=== PATIENT | female | born 1960 | race Caucasian/White ===

== ENCOUNTER → 2017-12-28 | Outpatient (CLI) | payer BC ==
[~2017-12-28] VITALS: Ht 166.4 cm; Wt 136.0 kg
[~2017-12-28] MED LIST: AMITRIPTYLINE H25 MG PO; ASCORBIC ACID500 M3 PO; ASPIR-LOW81 MG PO; BIOTIN 5000MCG PO; CALCIUM 500 MG1 EACH PO; CILOSTAZOL100 MG PO; COZAAR100 MG PO; CYANOCOBALAM1000 MCG PO; Cozaar PO; DAILY VITE1 EAC1 PO; DOCUSATE SODIU100 MG PO; ECONAZOLE NITRA15 GM TP; ENDOCET 5-3251 EACH PO; FENTANYL1 EAC5 TD; FOLIC ACID1 MG PO; GABAPENTIN300 MG PO; GABAPENTIN600 MG PO; IRON325 M1 PO; LIDOCAINE700 MG TD; LOPRESSOR25 MG PO; MAGNESIUM200 MG PO; MICARDIS20 MG PO; NASACORT AQ16.5 GM BOTH NARES; NEURONTIN600 MG PO; NIFEDIPINE ER90 MG PO; NOVOLOG PE100 UNITS/ SC; OXYCODONE HCL5 MG PO; PANTOPRAZOLE SO40 MG PO; POLYETHYLENE GL17 GM PO; PRAVASTATIN SOD40 MG PO; PREDNISONE10 MG PO; PREDNISONE20 MG PO; PROZAC20 MG PO; Pletal PO; SUCRALFATE1 GM PO; TECFIDERA240 MG PO; VITAMIN D1000 INTUN PO; Vicodin,Norco 5/325 PO; ZITHROMAX Z-PA250 MG PO; celeBREX PO
== END | disposition home or self-care (01) ==
LOC: AMB 10:38
PROC: 0DJ08ZZ Inspection of Upper Intestinal Tract, Via Natural or Artificial Opening Endoscopic (ICD-10-PCS; principal; 2017-12-28)
DX: K91.30 Postprocedural intestinal obstruction, unspecified as to partial versus complete (principal); K28.9 Gastrojejunal ulcer, unspecified as acute or chronic, without hemorrhage or perforation; K31.89 Other diseases of stomach and duodenum; Z98.84 Bariatric surgery status
CPT/HCPCS: 93005; J2250